=== PATIENT | male | born 1990 | race Caucasian/White ===

== ENCOUNTER 2017-05-27 19:14 | Emergency (ER) | payer SELFPAY ==
[~2017-05-27] VITALS: Ht 162.6 cm; Wt 55.0 kg
[~2017-05-27 19:14] MED LIST: Z.0.NO CURRENT MEDS
[2017-05-27 19:18] VITALS: BP 104/55; PULSE 82; RESP 16; TEMP 98.9; O2SAT 98
[2017-05-27] MEDS ORDERED: ERYTOIN10 LEFT EYE (20:07)
--- NOTE | 2017-05-27 20:08 | PD ---
HPI Chief Complaint: Eye Problems/Injury Time Seen by Provider: 19:54 Travel History International Travel<30 days: No Contact w/Intl Traveler<30days: No Traveled to known affect area: No History of Present Illness HPI Patient is a 26-year-old male presenting to emergency department for evaluation of left eye redness, tearing, showing a white discharge and crusting. Patient states it started 1 week ago, he is been using [id number] pinkeye eyedrops. He states that is slightly tender on his eyelids. He reports that 1 week ago a fly flew into his eye but he was able to get it out. He denies any foreign body sensation but states it feels like sandpaper. No Alleviating factors, symptoms are exacerbated first thing in the morning. Onset was gradual. Denies any visual changes, headache, fever, nasal congestion. PFSH Past Medical History Medical History: Denies Significant Hx Diminished Hearing: No Immunizations Current: Yes (UTD) Tetanus Vaccination: Unknown Influenza Vaccination: No Past Surgical History Surgical History: No Previous Surgery Social History Alcohol Use: No Tobacco Use: No Substance Use: No Allergies-Medications (Allergen,Severity, Reaction): Coded Allergies: No Known Allergies (Verified Allergy, Mild, 05/27/17) Reported Meds & Prescriptions Reported Meds & Active Scripts Active Reported No Current Meds (Miscellaneous Medication) [facility] Review of Systems Except as stated in HPI: all other systems reviewed are Neg Eyes: Positive: Drainage, Redness, Tearing, No: Foreign Body Sensation, Blind Spots, Visual changes Physical Exam Narrative GENERAL: Well-developed, well-nourished, alert male. Presenting in no acute distress. SKIN: Warm and dry. HEAD: Normocephalic. EYES: No scleral icterus. Moderate left eye injection, no drainage. Fluorescein was negative for abrasions, lesions. Ocular movements are intact. Pupils are equal, round and reactive. NECK: Supple, trachea midline. No JVD or lymphadenopathy. CARDIOVASCULAR: Regular rate and rhythm without murmurs, gallops, or rubs. RESPIRATORY: Breath sounds equal bilaterally. No accessory muscle use. GASTROINTESTINAL: Abdomen soft, non-tender, nondistended. MUSCULOSKELETAL: No cyanosis, or edema. BACK: Nontender without obvious deformity. No CVA tenderness. Data Data Last Documented VS Vital Signs Date Time Temp Pulse Resp B/P (MAP) Pulse Ox O2 Delivery O2 Flow Rate FiO2 05/27/17 19:18 98.9 82 16 104/55 (71) 98 Room Air MDM Medical Decision Making Medical Screen Exam Complete: Yes Emergency Medical Condition: Yes Interpretation(s) Vital Signs Date Time Temp Pulse Resp B/P (MAP) Pulse Ox O2 Delivery O2 Flow Rate FiO2 05/27/17 19:18 98.9 82 16 104/55 (71) 98 Room Air Differential Diagnosis Foreign body versus corneal abrasion versus bacterial conjunctivitis versus allergic conjunctivitis versus other Narrative Course Patient's 26-year-old male presenting with 1 week of left eye symptoms. His vital signs are stable. Exam appears most consistent with bacterial conjunctivitis. Patient will be given erythromycin ointment. He is encouraged to follow-up with an dietitian assistant. He was also advised to return to emergency department for any new or worsening symptoms. Patient verbalizes understanding of these instructions. Patient stable for discharge. Diagnosis Primary Impression: Conjunctivitis Qualified Codes: H10.9 - Unspecified conjunctivitis Referrals: Data Mining Analyst 2 days Patient Instructions: Conjunctivitis (ED), General Instructions Additional Instructions: Use medication as directed May apply warm compress Follow-up with dietitian assistant Return to the emergency department for any new or worsening symptoms Maintain strict hand washing. Med/Other Pt SpecificInfo: Prescription(s) given Scripts Erythromycin Opth Oint (Erythromycin Opth Oint) 5 Mg/Gm Oint 1 APPLIC LEFT EYE QID for Infection for 7 Days, #1 TUBE 0 Refills Prov: Emmie Hughes 05/27/17 Disposition: 01 DISCHARGE HOME Condition: Stable Emmie Hughes May 27, 2017 20:08
== END 2017-05-27 21:14 | disposition home or self-care (01) ==
LOC: NEPD 19:14
DX: H10.9 Unspecified conjunctivitis (principal)
CPT/HCPCS: 99283